=== PATIENT | female | born 1985 | race Hispanic/Latino ===

== ENCOUNTER 2021-03-09 20:36 | Emergency (ER) | payer SELFPAY ==
[2021-03-09] MEDS ORDERED: ACETAMINOPHEN 500 MG TAB ONE (22:22)
--- NOTE | 2021-03-10 00:38 | EDPHYS ---
Physician Documentation [facility] Name: Pat Davila Age: 35 yrs Sex: Female : 1985 Arrival Date: 03/09/2021 Time: 20:37 Bed 10 Private MD: ED Physician Dominik Alcantar HPI: 03/10 00:41 This 35 yrs old Female presents to ER via Wheelchair with complaints of BLOODY tw4 PRODUCTIVE COUGH, Fever, Weakness. 00:41 The patient reports fever, not measured (subjective). Onset: The symptoms/episode tw4 began/occurred 2 day(s) ago. Modifying factors: there are no obvious modifying factors. Associated signs and symptoms: Pertinent positives: cough. Severity of symptoms: At their worst the symptoms were moderate in the emergency department the symptoms are unchanged. The patient has not experienced similar symptoms in the past. 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 - Social history:: Smoking status: Patient denies any tobacco usage or history of. ROS: 03/10 00:41 Constitutional: Negative for fever, chills, and weight loss, Eyes: Negative for injury, tw4 pain, redness, and discharge, Cardiovascular: Negative for chest pain, palpitations, and edema, Abdomen/GI: Negative for abdominal pain, nausea, vomiting, diarrhea, and constipation, Back: Negative for injury and pain, MS/Extremity: Negative for injury and deformity, Skin: Negative for injury, rash, and discoloration, Neuro: Negative for headache, weakness, numbness, tingling, and seizure. Respiratory: Positive for cough, with no reported sputum, hemoptysis, shortness of breath, Negative for orthopnea, pleurisy. Exam: 00:41 Constitutional: This is a well developed, well nourished patient who is awake, alert, tw4 and in no acute distress. Head/Face: Normocephalic, atraumatic. Chest/axilla: Normal chest wall appearance and motion. Nontender with no deformity. No lesions are appreciated. Cardiovascular: Regular rate and rhythm with a normal S1 and S2. No gallops, murmurs, or rubs. Normal PMI, no JVD. No pulse deficits. Respiratory: Lungs have equal breath sounds bilaterally, clear to auscultation and percussion. No rales, rhonchi or wheezes noted. No increased work of breathing, no retractions or nasal flaring. Abdomen/GI: Soft, non-tender, with normal bowel sounds. No distension or tympany. No guarding or rebound. No evidence of tenderness throughout. Back: No spinal tenderness. No costovertebral tenderness. Full range of motion. Skin: Warm, dry with normal turgor. Normal color with no rashes, no lesions, and no evidence of cellulitis. MS/ Extremity: Pulses equal, no cyanosis. Neurovascular intact. Full, normal range of motion. Neuro: Awake and alert, GCS 15, oriented to person, place, time, and situation. Cranial nerves II-XII grossly intact. Motor strength 5/5 in all extremities. Sensory grossly intact. Cerebellar exam normal. Normal gait. Vital Signs: 03/09 21:47 BP 129 / 80; Pulse 102; Resp 28; Temp 101.7; Pulse Ox 100% on R/A; Weight 129.27 kg kg (R); Height 5 ft. 4 in. (162.56 cm) (R); Pain 8/10; 21:47 Body Mass Index 48.92 (129.27 kg, 162.56 cm) kg MDM: 03/10 00:37 Patient medically screened. tw4 00:41 Differential diagnosis: viral Infection, bacterial infection, URI. Data reviewed: vital tw4 signs, nurses notes, covid postive. Data interpreted: Pulse oximetry: Interpretation: normal. Counseling: I had a detailed discussion with the patient and/or guardian regarding: the historical points, exam findings, and any diagnostic results supporting the discharge/admit diagnosis, lab results. Special discussion: I discussed with the patient/guardian in detail that at this point there is no indication for admission to the hospital. It is understood, however, that if the symptoms persist or worsen the patient needs to return immediately for re-evaluation. 03/09 23:49 Order name: Urine --Ancillary (enter results) mw2 03/09 21:25 Order name: CXR XRAY tw4 03/10 00:27 Order name: SARS-COV-2 RT PCR; Complete Time: 00:43 EDOR 03/10 00:43 Interpretation: Abnormal: SARSCOV2 RT PCR POSITIVE. tw4 Administered Medications: 03/09 22:01 Drug: Tylenol 1000 mg Route: PO; kg Disposition Summary: 03/10/21 00:37 Discharge Ordered Location: Home tw4 Problem: new tw4 Symptoms: have improved tw4 Condition: Stable tw4 Diagnosis - Coronavirus infection, unspecified tw4 - Other coronavirus as the cause of diseases classified elsewhere tw4 Followup: tw4 - With: Private Physician - When: Upon discharge from the Emergency Department - Reason: Recheck today's complaints, Continuance of care, Re-evaluation by your physician Discharge Instructions: - Discharge Summary Sheet tw4 - Upper Respiratory Infection, Adult tw4 - Viral Respiratory Infection, [id number] tw4 - COVID-19 tw4 Forms: - Medication Reconciliation Form tw4 - Thank You Letter tw4 - Antibiotic Education tw4 - Prescription Opioid Use tw4 Prescriptions: - ProAir HFA 90 mcg/actuation Inhalation HFA aerosol inhaler - inhale 2 puff by INHALATION route 4 times per day; 4 puff; Refills: 0, Product tw4 Selection Permitted - Zofran 4 mg Oral Tablet - take 1 tablet by ORAL route every 12 hours As needed; 20 tablet; Refills: 0, tw4 Product Selection Permitted Signatures: Dispatcher [employer] Dominik Morales MD MD tw4 Belle Lundberg, RN RN kg
--- NOTE | 2021-03-10 00:38 | ER ---
Nurse's Notes [facility] Name: Pat Davila Age: 35 yrs Sex: Female : 1985 Arrival Date: 03/09/2021 Time: 20:37 Bed 10 Private MD: Diagnosis: Coronavirus infection, unspecified;Other coronavirus as the cause of diseases classified elsewhere Presentation: 03/09 21:47 Chief complaint: Patient states: Fever, SOB, Productive bloody cough, Left leg numbness kg x 2 days. Pt stated she took to at home COVID test and both were negative. Coronavirus screen: Client denies travel out of the [place] in the last 14 days. At this time, unable to obtain information related to travel outside the [place] Client presents with at least one sign or symptom that may indicate coronavirus-19. Standard/surgical mask placed on the client. Provider contacted for isolation considerations. Ebola Screen: Patient negative for fever greater than or equal to 101.5 degrees Fahrenheit, and additional compatible Ebola Virus Disease symptoms Patient denies exposure to infectious person. Patient denies travel to an Ebola-affected area in the 21 days before illness onset. No symptoms or risks identified at this time. Onset of symptoms was March 07, 2021. 21:47 Method Of Arrival: Wheelchair kg 21:54 Initial Sepsis Screen: Does the patient meet any 2 criteria? RR > 20 per min. Temp kg <36.0*C (96.8*F)) or > 38.3*C (100.9*F). Does the patient have a suspected source of infection? Yes: Productive cough/pneumonia. Risk Assessment: Do you want to hurt yourself or someone else? Patient reports no desire to harm self or others. 21:54 Acuity: VAL 3 kg Triage Assessment: 21:54 General: Appears in no apparent distress. Behavior is calm, cooperative, appropriate kg for age, quiet. 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 - Social history:: Smoking status: Patient denies any tobacco usage or history of. Screenin:53 Abuse screen: Denies threats or abuse. Denies injuries from another. Nutritional kg screening: No deficits noted. Tuberculosis screening: No symptoms or risk factors identified. Fall Risk None identified. Assessment: 21:53 Pain: Complains of pain in Back of head, throat, eyes Pain radiates to Generalized. kg Vital Signs: 21:47 BP 129 / 80; Pulse 102; Resp 28; Temp 101.7; Pulse Ox 100% on R/A; Weight 129.27 kg kg (R); Height 5 ft. 4 in. (162.56 cm) (R); Pain 8/10; 21:47 Body Mass Index 48.92 (129.27 kg, 162.56 cm) kg ED Course: 20:37 Patient arrived in ED. cf2 21:24 Dominik Alcantar MD is Attending Physician. tw4 21:45 CXR XRAY In Process Unspecified. EDMS 21:53 Patient has correct armband on for positive identification. kg 21:53 No provider procedures requiring assistance completed. kg 21:54 Triage completed. kg 21:54 Arm band placed on right wrist. kg 03/10 00:34 Jacob Mullins, RN is Primary Nurse. em 00:49 Patient did not have IV access during this emergency room visit. em Administered Medications: 03/09 22:01 Drug: Tylenol 1000 mg Route: PO; kg Outcome: 03/10 00:37 Discharge ordered by . tw4 00:48 Discharged to home ambulatory. em 00:48 Condition: stable 00:48 Discharge instructions given to patient, Instructed on discharge instructions, follow up and referral plans. medication usage, Demonstrated understanding of instructions, follow-up care, medications, Prescriptions given X 2. 00:49 Patient left the ED. em Signatures: Dispatcher [employer] Jacob Sequeira, RN RN Dominik Alcantar MD MD tw4 Darryl Stratton cf2 Belle Lundberg RN RN kg
[2021-03-10 00:57] VITALS: BP 129/80; TEMP 101.7; O2SAT 100
--- NOTE | 2021-03-10 11:54 | RAD REPORT ---
EXAM DESCRIPTION: RAD - Chest Single View - 03/09/2021 11:02 pm CLINICAL HISTORY: SOB Prolonged technical malfunctions delayed final written report. COMPARISON: None TECHNIQUE: AP portable chest image was obtained 03/09/2021 11:02 pm . FINDINGS: Lung volumes are very low which accentuates the interstitial pattern. No peripheral mass o r consolidation. Significant failure or volume overload not suspected. Heart and vasculature are norm al. No measurable pleural effusion and no pneumothorax. No acute bony abnormality seen. No acute aort ic findings suspected. IMPRESSION: No acute cardiopulmonary process.
== END 2021-03-10 00:49 | disposition home or self-care (01) ==
LOC: ER 20:36
DX: U07.1 COVID-19 (principal)
CPT/HCPCS: 71045; 81025; 99283; U0003

== ENCOUNTER 2021-11-07 23:59 | Emergency (ER) | payer SELFPAY ==
[2021-11-08] MEDS ORDERED: METHYLPREDNISOLONE 125 MG INJ ONE (00:40)
[2021-11-08] MEDS ORDERED: FAMOTIDINE 20 MG/2 ML VIAL IV ONE (00:41)
[2021-11-08] MEDS ORDERED: DIPHENHYDRAMINE 50 MG/ML VIAL ONE (00:41)
--- NOTE | 2021-11-08 02:27 | EDPHYS ---
Physician Documentation [facility] Name: Pat Davila Age: 35 yrs Sex: Female : 1985 Arrival Date: 11/08/2021 Time: 00:00 Bed 13 Private MD: ED Physician Kirby Palafox HPI: 11/08 04:36 This 35 yrs old Female presents to ER via Ambulatory with complaints of kdr Allergic Reaction, Hives. 04:36 The patient presents with itching, rash. Onset: The symptoms/episode began/occurred kdr acutely, suddenly, just prior to arrival. Associated signs and symptoms: The patient has no apparent associated signs or symptoms. Possible causes: The patient has no known obvious cause for the symptoms. At home the patient or guardian has treated the symptoms with nothing. The patient has not experienced similar symptoms in the past. The patient has not recently seen a physician. About an hour prior to arrival, the patient began having hives on her extremities. She does not recall any particular precipitating agent or events. She has not had anything like this before. She has otherwise been in good health. She denies any threat to airway. She states that the rash itches but otherwise is not to uncomfortable. Historical: - Allergies: 00:15 Coconut; sm5 00:15 Mushroom; sm5 - Home Meds: 00:15 None [Active]; sm5 - PMHx: 00:15 None; sm5 - Immunization history:: Client reports receiving the 2nd dose of the Covid vaccine. - Social history:: Smoking status: Patient denies any tobacco usage or history of. ROS: 04:36 Constitutional: Negative for fever, chills, and weight loss, Eyes: Negative for injury, kdr pain, redness, and discharge, ENT: Negative for injury, pain, and discharge, Neck: Negative for injury, pain, and swelling, Cardiovascular: Negative for chest pain, palpitations, and edema, Respiratory: Negative for shortness of breath, cough, wheezing, and pleuritic chest pain, Abdomen/GI: Negative for abdominal pain, nausea, vomiting, diarrhea, and constipation, Back: Negative for injury and pain, : Negative for injury, bleeding, discharge, and swelling, MS/Extremity: Negative for injury and deformity, Neuro: Negative for headache, weakness, numbness, tingling, and seizure activity. Psych: Negative for depression, anxiety, suicide ideation, homicidal ideation, and hallucinations, Allergy/Immunology: Negative for hives, rash, and allergies, Endocrine: Negative for neck swelling, polydipsia, polyuria, polyphagia, and marked weight changes, Hematologic/Lymphatic: Negative for swollen nodes, abnormal bleeding, and unusual bruising. 04:36 Skin: Positive for Exam: 04:36 Constitutional: This is a well developed, well nourished patient who is awake, alert, kdr and in no acute distress. Head/Face: Normocephalic, atraumatic. Eyes: Pupils equal round and reactive to light, extra-ocular motions intact. Lids and lashes normal. Conjunctiva and sclera are non-icteric and not injected. Cornea within normal limits. Periorbital areas with no swelling, redness, or edema. Vital Signs: 00:14 BP 143 / 62; Pulse 93; Resp 22; Temp 99.2(O); Pulse Ox 99% on R/A; Weight 129.27 kg; [facility] Height 5 ft. 3 in. (160.02 cm); 01:30 BP 134 / 78; Pulse 93; Resp 18; Pulse Ox 98% on R/A; ll3 02:15 BP 110 / 48; Pulse 84; Resp 17; Pulse Ox 97% on R/A; ll3 00:14 Body Mass Index 50.48 (129.27 kg, 160.02 cm) [facility] MDM: 02:27 Patient medically screened. kdr 04:38 Data reviewed: vital signs, nurses notes, lab test result(s), radiologic studies. kdr Administered Medications: 00:52 Drug: Pepcid (famotidine) 20 mg Route: IVP; Site: right antecubital; ll3 02:50 Follow up: Response: No adverse reaction ll3 00:52 Drug: Benadryl (diphenhydrAMINE) 50 mg Route: IVP; Site: right antecubital; ll3 02:50 Follow up: Response: No adverse reaction ll3 00:52 Drug: SOLU-Medrol (methylPrednisoLONE) 125 mg Route: IVP; Site: right antecubital; ll3 02:50 Follow up: Response: No adverse reaction ll3 Disposition Summary: 11/08/21 02:27 Discharge Ordered Location: Home kdr Problem: new kdr Symptoms: have improved kdr Condition: Stable kdr Diagnosis - Allergic urticaria kdr - Rash and other nonspecific skin eruption kdr Followup: kdr - With: Private Physician - When: 2 - 3 days - Reason: If symptoms return, Further diagnostic work-up, Recheck today's complaints, Continuance of care, Re-evaluation by your physician Discharge Instructions: - Discharge Summary Sheet kdr - Hives kdr - Rash, Adult, [id number] kdr Forms: - Medication Reconciliation Form kdr - Thank You Letter kdr Prescriptions: - Benadryl 25 mg Oral Capsule - take 2 capsule by ORAL route every 6 hours As needed; 30 tablet; Refills: 0, kdr Product Selection Permitted - Medrol (Naresh) 4 mg Oral Tablets, Dose Pack - take 1 tablet by ORAL route as directed - follow package instructions; 1 kdr packet; Refills: 0, Product Selection Permitted - Hydrocortisone 0.5 % Topical Cream - apply 1 application by TOPICAL route every 12 hours As needed; 60 gram; kdr Refills: 0, Product Selection Permitted - Pepcid 20 mg Oral Tablet - take 1 tablet by ORAL route once daily; 20 tablet; Refills: 0, Product kdr Selection Permitted Signatures: Kirby Palafox MD MD kdr Dede Jeffrey, RN RN ll3 Sis Valdez, RN RN sm5
--- NOTE | 2021-11-08 02:27 | ER ---
Nurse's Notes [facility] Name: Pat Davila Age: 35 yrs Sex: Female : 1985 Arrival Date: 11/08/2021 Time: 00:00 Bed 13 Private MD: Diagnosis: Allergic urticaria;Rash and other nonspecific skin eruption Presentation: 11/08 00:14 Chief complaint: Patient states: about an hour ago she started breaking out in hives on sm5 her legs and arms, swelling to her feet/ankles. unknown what she came in contact with. states she has not used any new products. has not taken any allergy medication. Coronavirus screen: Vaccine status: Patient reports receiving the 2nd dose of the covid vaccine. Ebola Screen: No symptoms or risks identified at this time. Onset: The symptoms/episode began/occurred 1 hour(s) ago. Anaphylaxis evaluation, no signs or symptoms of anaphylaxis were noted. Initial Sepsis Screen: Does the patient meet any 2 criteria? No. Patient's initial sepsis screen is negative. Does the patient have a suspected source of infection? No. Patient's initial sepsis screen is negative. Risk Assessment: Do you want to hurt yourself or someone else? Patient reports no desire to harm self or others. Onset of symptoms was November 08, 2021. 00:14 Method Of Arrival: Ambulatory 5 00:14 Acuity: VAL 4 sm5 Triage Assessment: 00:16 General: Appears in no apparent distress. Behavior is cooperative. Pain: Denies pain. sm5 Neuro: No deficits noted. Level of Consciousness is awake, alert, obeys commands, Oriented to person, place, time, situation. Derm: Rash noted that is itchy, red, raised, on right arm, left arm, right leg and left leg. Historical: - Allergies: 00:15 Coconut; sm5 00:15 Mushroom; sm5 - Home Meds: 00:15 None [Active]; sm5 - PMHx: 00:15 None; sm5 - Immunization history:: Client reports receiving the 2nd dose of the Covid vaccine. - Social history:: Smoking status: Patient denies any tobacco usage or history of. Screenin:16 Abuse screen: Denies threats or abuse. Denies injuries from another. Nutritional sm5 screening: No deficits noted. Tuberculosis screening: No symptoms or risk factors identified. Fall Risk None identified. Assessment: 00:20 General: Appears uncomfortable, Behavior is calm, cooperative. Pain: Denies pain. ll3 Neuro: Level of Consciousness is awake, alert, obeys commands, Oriented to person, place, time, situation. Cardiovascular: Patient's skin is warm and dry. Respiratory: Airway is patent Respiratory effort is even, unlabored, Respiratory pattern is regular, symmetrical, Breath sounds are clear bilaterally. Derm: Rash noted that is itchy, raised, on Whole body Reports Ate a burger from [employer], states they may have cooked mushrooms before cooking her food, states she is allergic to mushrooms. 01:15 Reassessment: No changes from previously documented assessment. Patient and/or family ll3 updated on plan of care and expected duration. Pain level reassessed. Patient is alert, oriented x 3, equal unlabored respirations, skin warm/dry/pink. 02:16 Reassessment: Patient and/or family updated on plan of care and expected duration. Pain ll3 level reassessed. Patient is alert, oriented x 3, equal unlabored respirations, skin warm/dry/pink. Pt states meds have helped with iching. Patient denies pain at this time. Vital Signs: 00:14 BP 143 / 62; Pulse 93; Resp 22; Temp 99.2(O); Pulse Ox 99% on R/A; Weight 129.27 kg; sm5 Height 5 ft. 3 in. (160.02 cm); 01:30 BP 134 / 78; Pulse 93; Resp 18; Pulse Ox 98% on R/A; ll3 02:15 BP 110 / 48; Pulse 84; Resp 17; Pulse Ox 97% on R/A; ll3 00:14 Body Mass Index 50.48 (129.27 kg, 160.02 cm) 5 ED Course: 00:00 Patient arrived in ED. kz 00:15 Triage completed. sm5 00:16 Arm band placed on right wrist. sm5 00:20 Patient has correct armband on for positive identification. Bed in low position. Call ll3 light in reach. Side rails up X 1. 00:22 Kirby Palafox MD is Attending Physician. kdr 00:28 Dede Jeffrey RN is Primary Nurse. ll3 00:52 Inserted saline lock: 22 gauge in right antecubital area, using aseptic technique. ll3 02:30 No provider procedures requiring assistance completed. IV discontinued, intact, ll3 bleeding controlled, No redness/swelling at site. Pressure dressing applied. Administered Medications: 00:52 Drug: Pepcid (famotidine) 20 mg Route: IVP; Site: right antecubital; ll3 02:50 Follow up: Response: No adverse reaction ll3 00:52 Drug: Benadryl (diphenhydrAMINE) 50 mg Route: IVP; Site: right antecubital; ll3 02:50 Follow up: Response: No adverse reaction ll3 00:52 Drug: SOLU-Medrol (methylPrednisoLONE) 125 mg Route: IVP; Site: right antecubital; ll3 02:50 Follow up: Response: No adverse reaction ll3 Outcome: 02:27 Discharge ordered by MD. kdr 02:30 Discharged to home ambulatory. ll3 02:30 Condition: stable 02:30 Discharge instructions given to patient, family, Instructed on discharge instructions, follow up and referral plans. medication usage, Demonstrated understanding of instructions, follow-up care, medications, Prescriptions given X 4. 02:50 Patient left the ED. ll3 Signatures: Kirby Palafox MD MD kdr Loubet, Lynsea RN RN 3 Sis Valdez RN RN Rafia Jesus
[2021-11-08 03:07] VITALS: TEMP 99.2
[2021-11-08 03:09] VITALS: BP 110/48; O2SAT 97
== END 2021-11-08 02:50 | disposition home or self-care (01) ==
LOC: ER 23:59
DX: L50.0 Allergic urticaria (principal); Z91.018 Allergy to other foods
CPT/HCPCS: 96374; 96375; 99283; J1200; J2930; J3490

== ENCOUNTER 2022-01-10 16:11 | Emergency (ER) | payer OTHER, SELFPAY ==
--- OUTSIDE RECORDS SUMMARY | 2022-01-10 16:14 | XMS REPORT | Continuity of Care Document ---
:[address] [facility] t Address [address] [place] [address] Care Team Providers Name Role Phone Unavailable Unavailable Unavailable Problems This patient has no known problems. Allergies, Adverse Reactions, Alerts This patient has no known allergies or adverse reactions. Medications This patient has no known medications. Procedures This patient has no known procedures. Results Test Description Test Time Test Comments Results Result Comments Source RIAZ REFLEX AUTOIMMUNE AB PROFILE 2021-11-24 10:27:44 Test Item Value Reference Range Interpretation Comme nts ANTI-NUCLEAR ANTIBODIES (test NEGATIVE NEGATIVE Methodology is Indirect code = 3506) Immunofluoresce nt Assay (IFA) with a titering s [employer] using [id number] cells (Hep2 frances ls transfected with SS-A/Ro). SEDIMENTATION [id number] 06:46:45 Test Item Value Reference Range Interpretation Comments SEDIMENTATION RATE (test code = 37 MM/HOUR 0-20 H 1017) COMPREHENSIVE METABOLIC [id number] 05:59:58 Test Item Value Reference Range Interpretation Comments GLUCOSE (test code = 138 MG/DL 70-99 H 2216) BUN (test code = 19 MG/DL 6-20 2207) CREATININE (test 0.46 MG/DL 0.60-1.30 L code = 2214) eGFR (2020 CKD-EPI) 128 >60 (test code = 12578) ML/MIN/1.73 CALC BUN/CREAT (test 41 RATIO 6-28 H code = 2235) SODIUM (test code = 136 MEQ/L 223-969 4352) POTASSIUM (test code 4.5 MEQ/L 3.5-5.4 = 8) CHLORIDE (test code 108 MEQ/L 95-107 H = 5) CARBON DIOXIDE (test 21 MEQ/L 19-31 code = 2206) CALCIUM (test code = 9.0 MG/DL 8.5-10.5 2208) PROTEIN, TOTAL (test 6.6 G/DL 6.1-8.3 code = 2229) ALBUMIN (test code = 3.9 G/DL 3.5-5.2 2200) CALC GLOBULIN (test 2.7 G/DL 1.9-3.7 code = 2240) CALC A/G RATIO (test 1.4 RATIO 1.0-2.6 code = 2234) BILIRUBIN, TOTAL 0.2 MG/DL See_Comment [Automated message] (test code = 2206) The syste m which generated this result transmit elizabeth reference range : <=1.2. The refe rence range was not u sed to interpret th is result as normal/abnormal . ALKALINE PHOSPHATASE 81 U/L 40-114 (test code = 2203) AST (test code = 19 U/L 9-40 2217) ALT (test code = 50 U/L 5-40 H 2218) RHEUMATOID FACTOR, [id number] 05:58:38 Test Item Value Reference Range Interpretation Comments RHEUMATOID FACTOR, QUANT (test code <10 IU/ML <14 = 3502) HIGH SENSITIVITY [id number] 05:58:38 Test Item Value Reference Range Interpretation Comments HIGH SENSITIVITY CRP 9.6 MG/L SEE BELOW H (test code = 19130) hsCRP LE LETTY RELATIVE RISK <1.0 MG/L LOW 1.0-3 .0 MG/L AVERA GE >3.0 MG/L HIGH (from P ion, T.A. et al. Circulation 200 3; 107:499) UNLESS OTHERWISE INDIC ATED, ALL TESTING PER FORMED ATCLINICAL PATH [facility], [facility]. [address] [place] [address] LABORATORY DIRE CTOR: Margy URBINA [id number] CAP ACCREDITATION N O. [id number] CBC W/AUTO DIFF WITH [id number] 04:28:47 Test Item Value Reference Range Interpretation Comments WBC (test code = 15.5 K/UL 3.5-11.0 H 1001) RBC (test code = 4.33 M/UL 3.80-5.40 1002) HEMOGLOBIN (test code 12.1 G/DL 11.5-15.5 = 1003) HEMATOCRIT (test code 35.6 % 34.0-45.0 = 1004) MCV (test code = 82.2 fL 80.0-99.0 1005) MCH (test code = 27.9 PG 25.0-33.0 1006) MCHC (test code = 34.0 G/DL 31.0-36.0 1007) RDW (test code = 14.1 % 11.5-15.0 1038) NEUTROPHILS (test 79.6 % code = 1008) LYMPHOCYTES (test 14.8 % code = 1010) MONOCYTES (test code 3.4 % = 1011) EOSINOPHILS (test 0.0 % code = 1012) BASOPHILS (test code 0.2 % = 1013) IMMATURE GRANULOCYTES 2.0 % (test code = 1036) NUCLEATED RBCS (test 0.0 /100 See_Comment [Autom ated code = 1065) WBC'S message] The sy stem which generated this result transmitted reference range : 0.0. The refere nce range was not u sed to interpret th is result as normal/abnormal . PLATELET COUNT (test 325 K/UL 130-400 code = 1015) ABSOLUTE NEUTROPHILS 12.34 K/UL 1.50-7.50 H (test code = 1066) ABSOLUTE LYMPHOCYTES 2.30 K/UL 1.00-4.00 (test code = 1067) ABSOLUTE MONOCYTES 0.52 K/UL 0.20-1.00 (test code = 1068) ABSOLUTE EOSINOPHILS 0.00 K/UL 0.00-0.50 (test code = 1040) ABSOLUTE BASOPHILS 0.03 K/UL 0.00-0.20 (test code = 1069) ABS IMMATURE 0.31 K/UL 0.00-0.10 H GRANULOCYTES (test code = 1020) ABS NUCLEATED RBCS 0.00 K/UL 0.00-0.11 (test code = 82866) PROTHROMBIN TIME (PT)2021-11-24 03:14:25 Test Item Value Reference Range Interpretation Comments PROTHROMBIN TIME 13.8 SECONDS 12.5-14.7 (PT) (test code = 1402) INR (test code = 1.0 SEE BELOW CURRENT 24646) RECOMMENDATIONS ARE FOR AN INR OF 2 .0-3.0 FOR A LL PATIENTS ON VIT MYLES K ANTAGONISTS, EX CEPT THOSE WITH PROSTHETIC HEAR T VALVES, FOR WHO M INR OF 2.5-3.5 IS RECOMMENDED.
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
[2022-01-10] MEDS ORDERED: HYDROCODONE/APAP 5/325 MG TAB ONE (18:46)
[2022-01-10] MEDS ORDERED: IBUPROFEN 200 MG TAB PO ONE (18:46)
[2022-01-10] MEDS ORDERED: IBUPROFEN 400 MG TAB ONE (18:47)
[2022-01-10 19:10] VITALS: BP 121/74; TEMP 97.9
[2022-01-10 19:16] VITALS: O2SAT 98
== END 2022-01-10 18:44 | disposition home or self-care (01) ==
LOC: ER 16:11
DX: S16.1XXA Strain of muscle, fascia and tendon at neck level, initial encounter (principal); S93.502A Unspecified sprain of left great toe, initial encounter; V49.49XA Driver injured in collision with other motor vehicles in traffic accident, initial encounter; Z91.018 Allergy to other foods
CPT/HCPCS: 72125; 99284

== ENCOUNTER 2022-04-03 03:22 | Emergency (ER) | payer SELFPAY ==
--- OUTSIDE RECORDS SUMMARY | 2022-04-03 03:25 | XMS REPORT | Continuity of Care Document ---
:1985 Author Organization [facility] t Address [address] [place] [address] Care Team Providers Name Role Phone Unavailable [...] Immunofluoresce nt Assay (IFA) with a titering syst em using [id number] cells (Hep2 frances ls transfected with SS-A/Ro). SEDIMENTATION [id number] 06:46:45 Test Item Value Reference Range Interpretation Comments SEDIMENTATION RATE (test code = 37 MM/HOUR 0-20 H 1017) COMPREHENSIVE METABOLIC [id number] 05:59:58 Test Item Value Reference Range Interpretation Comments GLUCOSE (test code = 138 MG/DL 70-99 H 2216) BUN (test code = 19 MG/DL 6-20 2207) CREATININE (test 0.46 MG/DL 0.60-1.30 L code = 2214) eGFR (2020 CKD-EPI) 128 >60 (test code = 91256) ML/MIN/1.73 CALC BUN/CREAT (test 41 RATIO 6-28 H code = 2235) SODIUM (test code = 136 MEQ/L 426-342 3603) POTASSIUM (test code 4.5 MEQ/L 3.5-5.4 = 2227) CHLORIDE (test code 108 MEQ/L 95-107 H = 2214) CARBON DIOXIDE (test 21 MEQ/L 19-31 code = 2206) CALCIUM (test code = 9.0 MG/DL 8.5-10.5 2208) PROTEIN, TOTAL (test 6.6 G/DL 6.1-8.3 code = 222) ALBUMIN (test code = 3.9 G/DL 3.5-5.2 [...] 50 U/L 5-40 H 2218) RHEUMATOID FACTOR, [id number] 05:58:38 Test Item Value Reference Range Interpretation Comments RHEUMATOID FACTOR, QUANT (test code <10 IU/ML <14 = 3502) HIGH SENSITIVITY [id number] 05:58:38 Test Item Value Reference Range Interpretation Comments HIGH SENSITIVITY CRP 9.6 MG/L SEE BELOW H hsCRP LEVEL RELATIVE (test code = 23180) RISK <1. 0 MG/L LOW 1.0-3.0 MG/L AV ERAGE >3.0 MG/L HIGH (from Stevan T.A. e t al. Circulation 200 3; 107:499) UNLESS OTHERWISE INDIC ATED, ALL TESTING PER FORMED ATCLINICAL PATH [facility]. [address] [place] [id number] LABORATOR Y DIRECTOR: NHI JIMENEZ M.D. CLIA NUMBER [id number] CAP ACCREDITATION N O. [id number] CBC W/AUTO DIFF WITH [id number] 04:28:47 Test Item Value Reference Range Interpretation [...] = 1036) NUCLEATED RBCS (test 0.0 /100 WBC'S See_Comment [Aut omated code = 1065) message] The sy stem which generated this [...] RBCS 0.00 K/UL 0.00-0.11 (test code = 12797) PROTHROMBIN TIME (PT)2021-11-24 03:14:25 Test Item Value Reference Range Interpretation Comments PROTHROMBIN TIME 13.8 SECONDS 12.5-14.7 (PT) (test code = 1402) INR (test code = 1.0 SEE BELOW CURRENT 27620) RECOMMENDATIONS ARE FOR AN INR OF 2 .0-3.0 FOR ALL PATIENT S ON VITAMIN K ANTAG ONISTS, EXCEPT THOSE WI TH PROSTHETIC HEAR T VALVES, FOR WHO M INR OF 2.5-3.5 IS RECOMMENDED.
[2022-04-03 04:25] LABS: Absolute Lymphocytes (CBC) 2.5 K/uL (0.7-4.9); Hematocrit 39.4 % (36.0-45.0); MCV 82.8 fL (80-100); MPV 7.5 fL (7.6-11.3); RBC Red Blood Cell Count 4.76 M/uL (3.86-4.86)
[2022-04-03 04:28] LABS: Protime INR 1.07
[2022-04-03] MEDS ORDERED: ONDANSETRON 4 MG/2 ML VIAL ONE (04:40)
[2022-04-03] MEDS ORDERED: FENTANYL CITR 100 MCG/2 ML ONE (04:40)
[2022-04-03] MEDS ORDERED: FAMOTIDINE 20 MG/2 ML VIAL IV ONE (04:40)
[2022-04-03 04:46] LABS: Albumin 3.5 g/dL (3.4-5.0); Bilirubin Direct 0.5 mg/dL (0-0.2); Bilirubin Total 0.9 mg/dL (0.2-1.0); Magnesium 2.2 mg/dL (1.8-2.4); Potassium 4.1 mmol/L (3.5-5.1); Protein, Total 7.8 g/dL (6.4-8.2); Troponin High Sensitivity 3.3 pg/mL (<58.9)
--- NOTE | 2022-04-03 07:58 | ER ---
Nurse's Notes [facility] Name: Pat Davila Age: 36 yrs Sex: Female : 1985 Arrival Date: 04/03/2022 Time: 03:27 Bed 4 Private MD: Diagnosis: Acute cholecystitis;Other cholelithiasis with obstruction;Epigastric abdominal tenderness;Morbid (severe) obesity due to excess calories Presentation: 04/03 03:46 Chief complaint: Patient states: "I started feeling short of breath this afternoon but vc1 now it is worse, It hurts to take a deep breath. On my way here I had to pool over because I had to vomit.". Coronavirus screen: Vaccine status: Patient reports being unvaccinated. Ebola Screen: No symptoms or risks identified at this time. Initial Sepsis Screen: Does the patient meet any 2 criteria? RR > 20 per min. Mean Arterial Pressure (MAP) < 65. Yes Does the patient have a suspected source of infection? No. Patient's initial sepsis screen is negative. Risk Assessment: Do you want to hurt yourself or someone else? Patient reports no desire to harm self or others. Onset of symptoms was April 02, 2000. 03:46 Method Of Arrival: Ambulatory vc1 03:46 Acuity: VAL 3 vc1 Triage Assessment: 03:50 General: Appears distressed, Behavior is anxious. Pain: Complains of pain in epigastric vc1 area Pain does not radiate. Pain currently is 9 out of 10 on a pain scale. Noted to be grimacing, guarding, moaning, Also complains of nausea. EENT: No deficits noted. Neuro: Level of Consciousness is awake, obeys commands, Oriented to person, place, time, situation, Appropriate for age. Cardiovascular: No deficits noted. Respiratory: Reports shortness of breath at rest labored breathing pain with respiration Onset: The symptoms/episode began/occurred gradually, the patient has moderate shortness of breath. GI: No deficits noted. : No deficits noted. Derm: No deficits noted. Musculoskeletal: No deficits noted. 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 - Social history:: Smoking status: Patient denies any tobacco usage or history of. Screenin:54 Abuse screen: Denies threats or abuse. Nutritional screening: No deficits noted. vc1 Tuberculosis screening: No symptoms or risk factors identified. Fall Risk None identified. Assessment: 03:54 Cardiovascular: Rhythm is sinus bradycardia. Respiratory: Airway is patent Respiratory vc1 effort is even, labored, Respiratory pattern is tachypnea. 05:00 Reassessment: Patient appears in no apparent distress at this time. Patient and/or jb4 family updated on plan of care and expected duration. Pain level reassessed. Patient is alert, oriented x 3, equal unlabored respirations, skin warm/dry/pink. 06:00 Reassessment: Patient appears in no apparent distress at this time. Patient and/or jb4 family updated on plan of care and expected duration. Pain level reassessed. Patient is alert, oriented x 3, equal unlabored respirations, skin warm/dry/pink. 07:00 Reassessment: Patient appears in no apparent distress at this time. Patient and/or jb4 family updated on plan of care and expected duration. Pain level reassessed. Patient is alert, oriented x 3, equal unlabored respirations, skin warm/dry/pink. 07:30 General: Appears comfortable, Behavior is calm, cooperative. Pain: Complains of pain in aa5 chest and epigastric area Pain does not radiate. Pain currently is 3 out of 10 on a pain scale. Quality of pain is described as crampy, sharp, Pain began 1 day ago. Is continuous. Neuro: Level of Consciousness is awake, alert, obeys commands, Oriented to person, place, time, situation. Cardiovascular: Heart tones S1 S2 present Rhythm is regular. Respiratory: Airway is patent Respiratory effort is even, unlabored, relaxed, Respiratory pattern is regular, symmetrical, Breath sounds are clear bilaterally. GI: Abdomen is obese, Bowel sounds present X 4 quads. Abd is soft X 4 quads Abdomen is tender to palpation in epigastric area Reports pain has improved, reports nausea has improved. : No signs and/or symptoms were reported regarding the genitourinary system. EENT: No signs and/or symptoms were reported regarding the EENT system. Derm: Skin is pink, warm \\T\\ dry. Musculoskeletal: Range of motion: intact in all extremities. 08:20 Reassessment: Patient is alert, oriented x 3, equal unlabored respirations, skin aa5 warm/dry/pink. Pt lying down in bed, pt using her cell phone. . 08:20 Pain: Pain currently is 3 out of 10 on a pain scale. aa5 09:20 Reassessment: Dr. Ayers at bedside updating pt on POC. aa5 09:40 Reassessment: Patient is alert, oriented x 3, equal unlabored respirations, skin aa5 warm/dry/pink. Awaiting approval for transfer. . 09:40 General: Appears comfortable. aa5 10:28 Reassessment: Unsuccessful attempt to give report to nurse at [facility], told to call aa5 back in 5-10 minutes . 10:55 Reassessment: 2nd unsucessful attempt to call report to nurse at [facility], transfer aa5 states nurse will call me back and states may send patient upon waiting to give report. ETA for EMS is 20 minutes at this time. . 11:45 Reassessment: Patient is alert, oriented x 3, equal unlabored respirations, skin aa5 warm/dry/pink. Vital Signs: 03:46 BP 92 / 49; Pulse 57; Resp 34; Temp 98.5(O); Pulse Ox 100% on R/A; Weight 136.08 kg; vc1 Height 5 ft. 3 in. (160.02 cm); Pain 10/10; 07:00 BP 113 / 71; Pulse 63; Resp 16; Pulse Ox 95% on R/A; jb4 08:20 BP 114 / 76; Pulse 75; Resp 16 S; Temp 98.4(TE); Pulse Ox 99% on R/A; aa5 03:46 Body Mass Index 53.14 (136.08 kg, 160.02 cm) vc1 ED Course: 03:27 Patient arrived in ED. bp1 03:36 Timmy Ayers MD is Attending Physician. michael 03:48 Triage completed. vc1 03:51 Arm band placed on left wrist. vc1 03:55 Patient has correct armband on for positive identification. Bed in low position. Client vc1 placed on continuous cardiac and pulse oximetry monitoring. NIBP monitoring applied. 04:49 Alisa Garcia, RN is Primary Nurse. ke1 04:56 US Abdomen Limited In Process Unspecified. EDMS 04:59 XRAY Chest (1 view) In Process Unspecified. EDMS 06:09 CT Chest For PE Angio In Process Unspecified. EDMS 06:10 CT Abd/Pelvis - IV Contrast Only In Process Unspecified. EDMS 07:30 IV 18G to R AC noted, 22G to L AC noted . aa5 07:30 IV discontinued, intact, bleeding controlled, Pressure dressing applied, 18G to R AC aa5 dc'd, infiltration noted. 07:52 initiated a transfer with Vivienne Gee from the [facility] transfer center. eb 08:25 No provider procedures requiring assistance completed. aa5 10:03 administrative approval given by Vivienne Gee / patient has been accepted to [facility] A509/ Dr. Sara Ferrara has accepted the patient in transfer/ report to be called through the transfer center at [phone]. 11:45 Patient transferred, IV remains in place. aa5 Administered Medications: 04:39 Drug: Zofran (Ondansetron) 4 mg Route: IVP; Site: right antecubital; jb4 07:30 Follow up: Response: No adverse reaction aa5 04:39 Drug: Pepcid (famotidine) 20 mg Route: IVP; Site: right antecubital; jb4 07:30 Follow up: Response: No adverse reaction; Marked relief of symptoms aa5 04:39 Drug: fentaNYL (PF) 50 mcg Route: IVP; Site: right antecubital; jb4 07:30 Follow up: Response: No adverse reaction; Pain is decreased aa5 08:00 Drug: Zosyn (piperacillin-tazobactam) 3.375 grams Route: IVPB; Infused Over: 60 mins; aa5 Site: left antecubital; 09:00 Follow up: Response: No adverse reaction; IV Status: Completed infusion aa5 Medication: 03:55 VIS not applicable for this client. vc1 Outcome: 07:57 ER care complete, transfer ordered by michael 11:45 Transferred by ground EMS to [facility], [facility], Transfer form completed. aa5 X-rays sent w/ patient. Note: Report given to [facility] 11:45 Condition: stable 11:45 Instructed on the need for transfer, Demonstrated understanding of instructions. 11:57 Patient left the ED. aa5 Signatures: Dispatcher [employer] Timmy Wolff MD MD cha Calderon, Audri, RN RN aa5 Leobardo Obando RN RN jb4 Pat Mohan Brittany bp1 Calcote, Vanessa RN RN vc1 Alisa Garcia RN RN ke1
--- NOTE | 2022-04-03 07:58 | EDPHYS ---
Physician Documentation [facility] Name: Pat Davila Age: 36 yrs Sex: Female : 1985 Arrival Date: 04/03/2022 Time: 03:27 Bed 4 Private MD: ED Physician Timmy Ayers HPI: 04/03 07:50 This 36 yrs old Female presents to ER via Ambulatory with complaints of michael Shortness Of Breath, Vomiting. 07:50 The patient has shortness of breath at rest. Onset: The symptoms/episode began/occurred michael just prior to arrival. Duration: The symptoms are continuous, and are steadily getting worse. The patient's shortness of breath is aggravated by light activity. 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 - Social history:: Smoking status: Patient denies any tobacco usage or history of. ROS: 07:51 Constitutional: Negative for fever, chills, and weight loss, Eyes: Negative for injury, michael pain, redness, and discharge, ENT: Negative for injury, pain, and discharge, Neck: Negative for injury, pain, and swelling, Cardiovascular: Negative for chest pain, palpitations, and edema, Respiratory: Negative for shortness of breath, cough, wheezing, and pleuritic chest pain, Back: Negative for injury and pain, : Negative for injury, bleeding, discharge, and swelling, MS/Extremity: Negative for injury and deformity, Skin: Negative for injury, rash, and discoloration, Neuro: Negative for headache, weakness, numbness, tingling, and seizure, Psych: Negative for depression, anxiety, suicide ideation, homicidal ideation, and hallucinations, Allergy/Immunology: Negative for hives, rash, and allergies, Endocrine: Negative for neck swelling, polydipsia, polyuria, polyphagia, and marked weight changes, Hematologic/Lymphatic: Negative for swollen nodes, abnormal bleeding, and unusual bruising. 07:51 Abdomen/GI: Positive for abdominal pain, of the epigastric area and right upper quadrant. Exam: 07:51 Constitutional: This is a well developed, well nourished patient who is awake, alert, michael and in no acute distress. Head/Face: Normocephalic, atraumatic. Eyes: Pupils equal round and reactive to light, extra-ocular motions intact. Lids and lashes normal. Conjunctiva and sclera are non-icteric and not injected. Cornea within normal limits. Periorbital areas with no swelling, redness, or edema. ENT: Nares patent. No nasal discharge, no septal abnormalities noted. Tympanic membranes are normal and external auditory canals are clear. Oropharynx with no redness, swelling, or masses, exudates, or evidence of obstruction, uvula midline. Mucous membranes moist. Neck: Trachea midline, no thyromegaly or masses palpated, and no cervical lymphadenopathy. Supple, full range of motion without nuchal rigidity, or vertebral point tenderness. No Meningismus. Chest/axilla: Normal chest wall appearance and motion. Nontender with no deformity. No lesions are appreciated. Cardiovascular: Regular rate and rhythm with a normal S1 and S2. No gallops, murmurs, or rubs. Normal PMI, no JVD. No pulse deficits. Respiratory: Lungs have equal breath sounds bilaterally, clear to auscultation and percussion. No rales, rhonchi or wheezes noted. No increased work of breathing, no retractions or nasal flaring. Back: No spinal tenderness. No costovertebral tenderness. Full range of motion. Pelvic Exam: Normal external genitalia. Speculum exam with closed cervical os, no discharge or bleeding noted. Bimanual exam with normal adnexa, no adnexal or cervical motion tenderness. Normal uterus. Female : Normal external genitalia. Skin: Warm, dry with normal turgor. Normal color with no rashes, no lesions, and no evidence of cellulitis. MS/ Extremity: Pulses equal, no cyanosis. Neurovascular intact. Full, normal range of motion. Neuro: Awake and alert, GCS 15, oriented to person, place, time, and situation. Cranial nerves II-XII grossly intact. Motor strength 5/5 in all extremities. Sensory grossly intact. Cerebellar exam normal. Normal gait. Psych: Awake, alert, with orientation to person, place and time. Behavior, mood, and affect are within normal limits. 07:51 ECG was reviewed by the Attending Physician. 07:51 Abdomen/GI: Inspection: distension. Vital Signs: 03:46 BP 92 / 49; Pulse 57; Resp 34; Temp 98.5(O); Pulse Ox 100% on R/A; Weight 136.08 kg; vc1 Height 5 ft. 3 in. (160.02 cm); Pain 10/10; 07:00 BP 113 / 71; Pulse 63; Resp 16; Pulse Ox 95% on R/A; jb4 08:20 BP 114 / 76; Pulse 75; Resp 16 S; Temp 98.4(TE); Pulse Ox 99% on R/A; aa5 03:46 Body Mass Index 53.14 (136.08 kg, 160.02 cm) vc1 MDM: 03:37 Patient medically screened. michael 07:52 Differential diagnosis: CHF exacerbation, Chronic Obstructive Pulmonary Disease michael pneumonia, pulmonary edema, Pulmonary Embolism reactive airway disease, bowel obstruction, cholecystitis, Cholelithiasis, diverticulitis, gastritis, non-specific abd pain, pancreatitis, Peptic Ulcer Disease, urinary tract infection. Antibiotic administration: zosyn . The patient's Wells Deep Vein Thrombosis Score was calculated as follows: Total Score: 0-2 Pts- Low Risk. The patient's pulmonary embolism risk score was calculated as follows: Total Score: 0-2 points. This patient was found to be at low risk for a pulmonary embolism by using the Well's assessment criteria. Immunization status:. Data reviewed: vital signs, nurses notes, lab test result(s), EKG, radiologic studies, CT scan, ultrasound. Data interpreted: quality assurance monitor body: rate is 63 beats/min, rhythm is regular, Pulse oximetry: on room air is 95 %. Test interpretation: by ED physician or midlevel provider: ECG, plain radiologic studies. Counseling: I had a detailed discussion with the patient and/or guardian regarding: the historical points, exam findings, and any diagnostic results supporting the discharge/admit diagnosis, lab results, radiology results, the need to transfer to another facility, for higher level of care, [facility] does not immediately have the required specialist. 07:57 Physician consultation: Lamin Valle MD after a discussion of the case, a [facility] recommendation for transfer for higher level of care is made. 04/03 03:38 Order name: Basic Metabolic Panel; Complete Time: 07:47 michael 04/03 03:38 Order name: CBC with Diff; Complete Time: 07:[address] [facility] 04/03 03:38 Order name: LFT's; Complete Time: 07:[address] [facility] 04/03 03:38 Order name: Magnesium; Complete Time: 07:[address] [facility] 04/03 03:38 Order name: NT PRO-BNP; Complete Time: 07:[address] [facility] 04/03 03:38 Order name: PT-INR; Complete Time: 07:[address] [facility] 04/03 03:38 Order name: Troponin HS; Complete Time: 07:[address] [facility] 04/03 03:38 Order name: XRAY Chest (1 view) [facility] 04/03 03:38 Order name: Lipase; Complete Time: 07:47 michael 04/03 07:49 Order name: SARS RAPID; Complete Time: 08:46 eb 04/03 08:03 Order name: Urine Dipstick-Ancillary; Complete Time: 08:46 EDMS 04/03 08:47 Order name: Urine Culture [facility] 04/03 08:47 Order name: Urine Microscopic Only [facility] 04/03 03:38 Order name: EKG; Complete Time: 03:[address] [facility] 04/03 03:38 Order name: Cardiac monitoring; Complete Time: 04:[address] [facility] 04/03 03:38 Order name: EKG - Nurse/Tech; Complete Time: 04:[address] [facility] 04/03 03:38 Order name: IV Saline Lock; Complete Time: 04:[address] [facility] 04/03 03:38 Order name: Labs collected and sent; Complete Time: 04:[address] [facility] 04/03 03:38 Order name: O2 Per Protocol; Complete Time: 04:[address] [facility] 04/03 03:38 Order name: O2 Sat Monitoring; Complete Time: 04:[address] [facility] 04/03 03:38 Order name: Urine Dipstick-Ancillary (obtain specimen); Complete Time: 08:[address] [facility] 04/03 03:38 Order name: Urine Test (obtain specimen); Complete Time: 08:[address] [facility] 04/03 03:53 Order name: US Abdomen Limited [facility] 04/03 03:53 Order name: CT Chest For PE Angio michael 04/03 03:53 Order name: CT Abd/Pelvis - IV Contrast Only [facility] EC:51 Rate is 54 beats/min. Rhythm is regular. QRS [place] is Normal. CO interval is normal. QRS michael interval is normal. QT interval is normal. No Q waves. T waves are Normal. No ST changes noted. Clinical impression: Sinus bradycardia and No evidence of ischemia. Interpreted by me. Reviewed by me. Administered Medications: 04:39 Drug: Zofran (Ondansetron) 4 mg Route: IVP; Site: right antecubital; jb4 07:30 Follow up: Response: No adverse reaction aa5 04:39 Drug: Pepcid (famotidine) 20 mg Route: IVP; Site: right antecubital; jb4 07:30 Follow up: Response: No adverse reaction; Marked relief of symptoms aa5 04:39 Drug: fentaNYL (PF) 50 mcg Route: IVP; Site: right antecubital; jb4 07:30 Follow up: Response: No adverse reaction; Pain is decreased aa5 08:00 Drug: Zosyn (piperacillin-tazobactam) 3.375 grams Route: IVPB; Infused Over: 60 mins; aa5 Site: left antecubital; 09:00 Follow up: Response: No adverse reaction; IV Status: Completed infusion aa5 Disposition Summary: 04/03/22 07:57 Transfer Ordered Transfer Location: [facility] michael Reason: Higher level of care michael Condition: Stable michael Problem: new michael Symptoms: have improved michael Accepting Physician: to [facility](04/03/22 11:57) aa5 Diagnosis - Acute cholecystitis michael - Other cholelithiasis with obstruction michael - Epigastric abdominal tenderness michael - Morbid (severe) obesity due to excess calories michael Forms: - Medication Reconciliation Form michael - SBAR form michael Signatures: Dispatcher [employer] EDTimmy Loyola MD MD cha Calderon, Audri RN RN aa5 Leobardo Obando RN RN jb4 Diana Burnett RN RN vc1 Corrections: (The following items were deleted from the chart) 11:57 07:57 to [facility] michael aa5
[2022-04-03 08:03] LABS: Urine Blood 1+ (Negative); Urine Glucose Negative (Negative); Urine Protein Trace (Negative)
[2022-04-03] MEDS ORDERED: PIPERACIL/TAZO 3.375 GM VIAL IV ONE (08:07)
[2022-04-03] MEDS ORDERED: NA CHLORIDE 0.9% 100 ML ONE (08:07)
[2022-04-03 08:28] LABS: SARS-CoV-2 Antigen Rapid Res Negative (Negative)
[2022-04-03 09:12] LABS: Urine Bacteria <20 /HPF (<20); Urine Mucus 2+ /HPF (None Seen); Urine RBC >50 /HPF (None Seen)
--- NOTE | 2022-04-03 20:29 | RAD REPORT ---
EXAM DESCRIPTION: CT - Abdomen Pelvis W Contrast - 04/03/2022 6:08 am COMPARISON: None. CLINICAL HISTORY: Chest and abdominal pain TECHNIQUE: CT images through the chest with IV contrast using the pulmonary embolus protocol and thr ough the abdomen and pelvis. Multiplanar reformats. MIPS reformats are provided. Automated exposure control was utilized on this examination as a dose lowering technique. FINDINGS: Pulmonary arteries and vascular: Diagnostic quality bolus. No filling defects. Heart and mediastinum: Heart size is normal. No lymphadenopathy. Thyroid gland: Visualized portions are normal. Lungs: Clear. Airways: No filling defects. No bronchiectasis. Pleura: No pneumothorax. No significant pleural effusion. Musculoskeletal and soft tissues: Within normal limits for age. CT ABDOMEN & PELVIS FINDINGS: Liver: Normal. Gallbladder and biliary: Normal gallbladder. Unremarkable biliary tree. Pancreas: Normal. Spleen: Normal. Kidneys and adrenal glands: Normal adrenal glands. Normal kidneys Stomach and Small Bowel: The stomach and small bowel are normal. Urinary bladder: Normal. Uterus and Adnexa: IUD in place. Colon and Appendix: The colon is unremarkable. No evidence of appendicitis. Peritoneal cavity: No ascites or free air. Retroperitoneum and lymph nodes: Normal. Vascular: Unremarkable. Musculoskeletal and soft tissues: Soft tissues are unremarkable. No aggressive bone lesions. No c ompression fracture. IMPRESSION: No evidence of pulmonary embolus or other acute chest process. ABDOMEN AND PELVIS IMPRESSION: No acute intra-abdominal abnormality. Electronically signed by: Luis Felder MD 04/03/2022 6:49 AM CDT Due to temporary technical issues with the PACS/Fluency reporting system, reports are being signed by the in house radiologists without review as a courtesy to insure prompt reporting. The interpreting radiologist is fully responsible for the content of the report.
--- NOTE | 2022-04-03 20:33 | RAD REPORT ---
EXAM DESCRIPTION: CT - Chest For Pe Angio - 04/03/2022 6:08 am COMPARISON: None. CLINICAL HISTORY: Chest and abdominal pain TECHNIQUE: CT images through the chest with IV contrast using the pulmonary embolus protocol and thr ough the abdomen and pelvis. Multiplanar reformats. MIPS reformats are provided. Automated exposure control was utilized on this examination as a dose lowering technique. FINDINGS: Pulmonary arteries and vascular: Diagnostic quality bolus. No filling defects. Heart and mediastinum: Heart size is normal. No lymphadenopathy. Thyroid gland: Visualized portions are normal. Lungs: Clear. Airways: No filling defects. No bronchiectasis. Pleura: No pneumothorax. No significant pleural effusion. Musculoskeletal and soft tissues: Within normal limits for age. CT ABDOMEN & PELVIS FINDINGS: Liver: Normal. Gallbladder and biliary: Normal gallbladder. Unremarkable biliary tree. Pancreas: Normal. Spleen: Normal. Kidneys and adrenal glands: Normal adrenal glands. Normal kidneys Stomach and Small Bowel: The stomach and small bowel are normal. Urinary bladder: Normal. Uterus and Adnexa: IUD in place. Colon and Appendix: The colon is unremarkable. No evidence of appendicitis. Peritoneal cavity: No ascites or free air. Retroperitoneum and lymph nodes: Normal. Vascular: Unremarkable. Musculoskeletal and soft tissues: Soft tissues are unremarkable. No aggressive bone lesions. No c ompression fracture. IMPRESSION: CHEST IMPRESSION: No evidence of pulmonary embolus or other acute chest process. ABDOMEN AND PELVIS IMPRESSION: No acute intra-abdominal abnormality. Electronically signed by: Luis Felder MD 04/03/2022 6:49 AM CDT Due to temporary technical issues with the PACS/Fluency reporting system, reports are being signed by the in house radiologists without review as a courtesy to insure prompt reporting. The interpreting radiologist is fully responsible for the content of the report.
--- NOTE | 2022-04-03 21:21 | RAD REPORT ---
EXAM DESCRIPTION: RAD - Chest Single View - 04/03/2022 4:58 am CLINICAL HISTORY: 36 years Female, COUGH COMPARISON: None. TECHNIQUE: Single portable x-ray view of the chest performed on 04/03/2022 at 4:53 AM FINDINGS: The lungs are relatively well expanded. There is very mild nonspecific perihilar interstit ial prominence which may be chronic in nature. No focal airspace consolidation is identified. The lat eral costophrenic sulci are clear. There is no evidence of a pneumothorax. The cardiac silhouette is normal in size and configuration. The mediastinal contours are normal. No acute osseous abnormality is identified. No acute soft tissue abnormalities are seen. Lines and tubes: None. Free air: None IMPRESSION: Mild nonspecific perihilar interstitial prominence which may be chronic in nature. Mild interstitial edema could have a similar appearance. Electronically signed by: Tammie Batista DO 04/03/2022 6:06 AM CDT Due to temporary technical issues with the PACS/Fluency reporting system, reports are being signed by the in house radiologists without review as a courtesy to insure prompt reporting. The interpreting radiologist is fully responsible for the content of the report.
--- NOTE | 2022-04-03 21:55 | RAD REPORT ---
EXAM DESCRIPTION: US - Abdomen Exam Limited - 04/03/2022 4:54 am CLINICAL HISTORY: 36 years Female ABD PAIN TECHNIQUE: Limited sonographic imaging of the right upper quadrant was performed on 04/03/2022 at 4: 37 AM to evaluate the gallbladder. COMPARISON: None. FINDINGS: The gallbladder is well distended. There is a shadowing intraluminal echo consistent with a gallstone. The gallbladder wall measures approximately 1.4 mm in diameter. There is no evidence of pericholecystic fluid. The common bile duct measures approximately 5.3 mm in diameter. A sonographic Howard's sign was not evaluated. IMPRESSION: Cholelithiasis without evidence of gallbladder wall thickening, pericholecystic fluid or biliary ductal dilatation. Electronically signed by: Tammie Batista DO 04/03/2022 6:01 AM CDT Due to temporary technical issues with the PACS/Fluency reporting system, reports are being signed by the in house radiologists without review as a courtesy to insure prompt reporting. The interpreting radiologist is fully responsible for the content of the report.
--- NOTE | 2022-04-04 15:57 | EKG ---
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
[2022-04-04 21:28] VITALS: BP 114/76; TEMP 98.4; O2SAT 99
== END 2022-04-03 11:57 | disposition short-term general hospital (02) ==
LOC: ER 03:22
DX: K80.01 Calculus of gallbladder with acute cholecystitis with obstruction (principal); E66.01 Morbid (severe) obesity due to excess calories; Z68.43 Body mass index [BMI] 50.0-59.9, adult; Z20.822 Contact with and (suspected) exposure to COVID-19
CPT/HCPCS: 36415; 71045; 71275; 74177; 76705; 80048; 80076; 81003; 81015; 83690; 83735; 83880; 84484; 85025; 85610; 87086; 87088; 87811; 93005; 96365; 96375; 99285; J2405; J2543; J3010; Q9967

== ENCOUNTER 2023-10-25 16:19 | Emergency (ER) | payer OTHER ==
[2023-10-25] MEDS ORDERED: KETOROLAC 30 MG/ML INJ ONE (16:50)
[2023-10-25] MEDS ORDERED: ONDANSETRON 4 MG (ODT) TAB ONE (16:50)
[2023-10-25] MEDS ORDERED: ACETAMINOPHEN 500 MG TAB ONE (16:50)
--- NOTE | 2023-10-25 17:18 | RAD REPORT ---
EXAM DESCRIPTION: RAD - Chest Single View - 10/25/2023 5:09 pm CLINICAL HISTORY: COUGH Chest pain. COMPARISON: <Comparisons> FINDINGS: Portable technique limits examination quality. Interstitial markings are mildly prominent which may be seen in viral infection. No consolidation see n to indicate pneumonia. The heart is normal in size. No displaced fractures.
[2023-10-25 17:25] LABS: SARS-CoV-2 Antigen CONTROL BLUE LINE VIS/BG OK; SARS-CoV-2 Antigen Rapid Res Negative (Negative)
--- NOTE | 2023-10-25 17:34 | ER ---
Nurse's Notes [facility] Name: Pat Vargas Age: 37 yrs Sex: Female : 1985 Arrival Date: 10/25/2023 Time: 16:19 Bed DX4 Private MD: Diagnosis: Viral infection, unspecified Presentation: 10/24 16:45 Chief complaint: Patient states: body aches, fever, cough x2 days. Coronavirus screen: as6 At this time, the client does not indicate any symptoms associated with coronavirus-19. Ebola Screen: No symptoms or risks identified at this time. Initial Sepsis Screen: Does the patient meet any 2 criteria? No. Patient's initial sepsis screen is negative. Does the patient have a suspected source of infection? No. Patient's initial sepsis screen is negative. Risk Assessment: Do you want to hurt yourself or someone else? Patient reports no desire to harm self or others. Onset of symptoms was October 23, 2023. 16:45 Acuity: VAL 4 as6 16:45 Method Of Arrival: Ambulatory as6 Triage Assessment: 16:48 General: Appears ill, Behavior is calm, cooperative. General: Reports fever for feeling as6 ill for fatigue for. Pain: Complains of pain in generalized. 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 - Infectious Disease History:: Denies. - Social history:: Smoking status: Patient denies any tobacco usage or history of. Screenin:38 [facility] ED Fall Risk Assessment (Adult) History of falling in the last 3 months, as6 including since admission No falls in past 3 months (0 pts) Confusion or Disorientation No (0 pts) Intoxicated or Sedated No (0 pts) Impaired Gait No (0 pts) Mobility Assist Device Used No (0 pt) Altered Elimination No (0 pt) Score/Fall Risk Level 0 - 2 = Low Risk Oriented to surroundings, Maintained a safe environment, Educated pt \T\ family on fall prevention, incl call for assistance when getting out of bed, Assessed \T\ reinforced patient's understanding of fall precautions. Abuse screen: Denies threats or abuse. Denies injuries from another. Nutritional screening: No deficits noted. Tuberculosis screening: No symptoms or risk factors identified. Vital Signs: 16:45 BP 118 / 68; Pulse 97; Resp 16 S; Temp 100.3(O); Pulse Ox 100% on R/A; Weight 129.27 kg as6 (R); Height 5 ft. 3 in. (R); Pain 10/10; 17:40 Temp 98.7(O); as6 16:45 Body Mass Index 50.48 (129.27 kg, 160.02 cm) as6 16:45 Pain Scale: Adult as6 ED Course: 16:21 Patient arrived in ED. mr 16:24 Jr Howard MD is Attending Physician. ec2 16:47 Triage completed. as6 16:47 Arm band placed on. as6 16:57 Influenza Screen (a \T\ B) Sent. as6 16:57 SARS RAPID Sent. as6 17:11 CXR XRAY In Process Unspecified. EDMS 17:38 Patient has correct armband on for positive identification. Provided Education on: as6 follow up. 17:39 No provider procedures requiring assistance completed. Patient did not have IV access as6 during this emergency room visit. Administered Medications: 16:56 Drug: Acetaminophen PO 1000 mg PO once Route: PO; as6 17:39 Follow up: Response: No adverse reaction as6 16:57 Drug: Ketorolac IM 30 mg IM once Route: IM; Site: right deltoid; as6 17:39 Follow up: Response: No adverse reaction as6 16:57 Drug: Ondansetron Oral Disintegrating Tablet Oral Disintegrating Tablet 4 mg PO once as6 Route: PO; 17:39 Follow up: Response: No adverse reaction as6 Medication: 17:38 VIS not applicable for this client. as6 Outcome: 17:33 Discharge ordered by . ec2 17:38 Discharged to home ambulatory, with significant other, as6 17:38 Condition: stable 17:39 Discharge instructions given to patient, Instructed on discharge instructions, follow as6 up and referral plans. medication usage, Demonstrated understanding of instructions, follow-up care, medications, Prescriptions given X 2, 17:41 Patient left the ED. as6 Signatures: Dispatcher [employer] EDCT Ana Flores Reg Reg mr RexRony, RN RN as6 Jr Howard MD MD ec2 Corrections: (The following items were deleted from the chart) 16:47 16:47 PSHx: None; as6 as6
--- NOTE | 2023-10-25 17:34 | EDPHYS ---
Physician Documentation [facility] Name: Pat Vargas Age: 37 yrs Sex: Female : 1985 Arrival Date: 10/25/2023 Time: 16:19 Bed DX4 Private MD: ED Physician Jr Howard HPI: 10/24 16:41 This 37 yrs old Female presents to ER via Unassigned with complaints of Flu ec2 Symptoms. 16:41 Patient arrives today for evaluation of 1 day of URI signs symptoms. Patient reports ec2 having cough and congestion as well as body aches. Patient reports fevers and chills along with decreased p.o. intake, some associated nausea. Patient reports no vomiting or diarrhea. Patient reports no urinary complaints, no sick contacts. . 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 - Infectious Disease History:: Denies. - Social history:: Smoking status: Patient denies any tobacco usage or history of. ROS: 16:41 Constitutional: as per hpi ec2 Exam: 16:41 Constitutional: GEN: NAD Head: atraumatic Eyes: EOMI Ears: External ears are ec2 normal. CV: regular rate LUNGS: no respiratory distress, no wheezes, no rales, rhonchi ABD: non-distended SKIN: no evidence of rashes MSK: no evidence of trauma NEURO: moves all extremities equally Vital Signs: 16:45 BP 118 / 68; Pulse 97; Resp 16 S; Temp 100.3(O); Pulse Ox 100% on R/A; Weight 129.27 kg as6 (R); Height 5 ft. 3 in. (R); Pain 10/10; 17:40 Temp 98.7(O); as6 16:45 Body Mass Index 50.48 (129.27 kg, 160.02 cm) as6 16:45 Pain Scale: Adult as6 MDM: 16:41 Data reviewed: vital signs. ED course: Patient arrives today for evaluation of URI ec2 signs and symptoms. Examination markable for well-appearing nontoxic dividual's otherwise in no acute distress but will obtain chest x-ray, viral swabs. Suspect viral infection causing symptoms, doubt pneumonia. . 16:48 Patient medically screened. ec2 17:22 ED course: Chest x-ray with no focal opacity noted.. ec2 17:33 ED course: Negative flu and COVID testing. Suspect other viral infection causing his ec2 symptoms. Will discharge home. Return precautions given.. 10/24 16:40 Order name: Influenza Screen (a \T\ B); Complete Time: 17:33 ec2 10/24 16:40 Order name: SARS RAPID; Complete Time: 17:27 ec2 10/24 16:40 Order name: CXR XRAY; Complete Time: 17:22 ec2 Administered Medications: 16:56 Drug: Acetaminophen PO 1000 mg PO once Route: PO; as6 17:39 Follow up: Response: No adverse reaction as6 16:57 Drug: Ketorolac IM 30 mg IM once Route: IM; Site: right deltoid; as6 17:39 Follow up: Response: No adverse reaction as6 16:57 Drug: Ondansetron Oral Disintegrating Tablet Oral Disintegrating Tablet 4 mg PO once as6 Route: PO; 17:39 Follow up: Response: No adverse reaction as6 Disposition Summary: 10/25/23 17:33 Discharge Ordered Notes: Location: Home ec2 Condition: Stable ec2 Diagnosis - Viral infection, unspecified ec2 Followup: ec2 - With: Private Physician - When: - Reason: Re-evaluation by your physician Discharge Instructions: - Discharge Summary Sheet ec2 - Viral Illness, Adult ec2 Forms: - Work release form ll1 - Medication Reconciliation Form ec2 - Thank You Letter ec2 - Antibiotic Education ec2 - Prescription Opioid Use ec2 - Patient Portal Instructions ec2 - Leadership Thank You Letter ec2 Prescriptions: - Zofran 4 mg Oral Tablet - take 1 tablet ORAL route every 12 hours As needed; 20 tablet; Refills: 0, ec2 Product Selection Permitted - Tessalon Perles 100 mg Oral Capsule - take 1 capsule ORAL route every 8 hours As needed; 15 capsule; Refills: 0, ec2 Product Selection Permitted Signatures: Dispatcher [employer] Rony Irizarry RN RN as6 Jr Howard MD MD ec2 Corrections: (The following items were deleted from the chart) 16: 16:41 Influenza Screen (A \T\ B)+BA.LAB.BRZ ordered. EDMS EDMS 1641 16:41 SARS-COV-2 Antigen Rapid+I.LAB.KERRY ordered. EDMS EDMS 16:47 16:47 PSHx: None; as6 as6
[2023-10-25 17:49] VITALS: BP 118/68; TEMP 98.7; O2SAT 100
== END 2023-10-25 17:41 | disposition home or self-care (01) ==
LOC: ER 16:19
DX: B34.9 Viral infection, unspecified (principal); Z11.52 Encounter for screening for COVID-19; Z91.018 Allergy to other foods
CPT/HCPCS: 36415; 87804 ×2; 71045; 96372; 99284; 87811; Q0162

== ENCOUNTER 2024-10-03 20:00 | Emergency (ER) | payer OTHER, SELFPAY ==
[2024-10-03 20:42] LABS: Influenza A Ag Negative; Influenza B Ag Negative; SARS-CoV-2 Antigen Rapid Res Negative (Negative)
--- NOTE | 2024-10-03 21:15 | RAD REPORT ---
EXAM: Chest Pa And Lat (2 Views) HISTORY: 38 years Female Congestion;Cough COMPARISON: 10/25/2023 FINDINGS: LUNGS/PLEURA: Low lung volumes with some interstitial prominence. No focal consolidation or edema. CARDIAC/MEDIASTINUM: The cardiac silhouette is within normal limits. UPPER ABDOMEN: No significant abnormality. BONES: No acute abnormality. LINES/TUBES/OTHER: N/A IMPRESSION: Prominence of the interstitium could reflect a nonspecific process such as bronchitis. No edema or co nsolidative airspace disease.
--- NOTE | 2024-10-03 21:19 | ER ---
Nurse's Notes [facility] Name: Pat Vargas Age: 38 yrs Sex: Female : 1985 Arrival Date: 10/03/2024 Time: 20:00 Bed IW1 Private MD: Diagnosis: Presentation: 10/03 20:09 Chief complaint: Patient states: Cough, fever, body aches, shortness of breath and cm10 blood tinged phlegm onset tuesday. Coronavirus screen: Client denies travel out of the [place] in the last 14 days. Ebola Screen: Patient denies travel to an Ebola-affected area in the 21 days before illness onset. Initial Sepsis Screen: Does the patient meet any 2 criteria? HR > 90 bpm. Does the patient have a suspected source of infection? No. Patient's initial sepsis screen is negative. Risk Assessment: Do you want to hurt yourself or someone else? Patient reports no desire to harm self or others. Onset of symptoms was October 03, 2024. 20:09 Method Of Arrival: Ambulatory cm10 20:09 Acuity: VAL 3 cm10 Triage Assessment: 20:11 General: Appears in no apparent distress. uncomfortable, Behavior is calm, cooperative. cm10 Neuro: No deficits noted. Level of Consciousness is awake, alert, obeys commands, Oriented to person, place, time, situation, Appropriate for age. Respiratory: No deficits noted. Reports shortness of breath cough that is productive, Airway is patent Respiratory effort is even, unlabored, Respiratory pattern is regular, symmetrical. Historical: - Allergies: 20:11 Coconut; cm10 20:11 mushroom; cm10 - Home Meds: 20:11 None [Active]; cm10 - PMHx: 20:11 None; cm10 - PSHx: 20:11 Cholecystectomy; cm10 - Immunization history:: Adult Immunizations up to date. - Infectious Disease History:: Denies. - Social history:: Smoking status: Patient denies any tobacco usage or history of. Assessment: 21:16 General: PT SEEN LEAVING ER AT THIS TIME.. cm10 Vital Signs: 20:09 BP 143 / 91; Pulse 93; Resp 18; Temp 98.7(O); Pulse Ox 99% on R/A; Weight 144.24 kg; cm10 Height 5 ft. 3 in. ; Pain 03/27; 20:09 Body Mass Index 56.33 (144.24 kg, 160.02 cm) cm10 20:09 Pain Scale: Adult cm10 ED Course: 20:02 Patient arrived in ED. im 20:05 Sara Delong PA-C is PHCP. sb4 20:05 Raymond Almonte MD is Attending Physician. sb4 20:10 Triage completed. cm10 20:11 Arm band placed on right wrist. Patient placed in waiting room. cm10 20:41 Chest Pa And Lat (2 Views) XRAY In Process Unspecified. EDMS Administered Medications: No medications were administered Outcome: 21:19 Patient left the ED. cm10 Signatures: Dispatcher [employer] EDMS Sara Delong PA-C PA-C sb4 Adelita Zuniga Clarissa, RN RN cm10
[2024-10-04 01:39] VITALS: BP 143/91; TEMP 98.7; O2SAT 99
--- NOTE | 2024-10-04 21:19 | EDPHYS ---
Physician Documentation [facility] Name: Pat Vargas Age: 38 yrs Sex: Female : 1985 Arrival Date: 10/03/2024 Time: 20:00 Bed IW1 Private MD: ED Physician Raymond Almonte Historical: - Allergies: 10/03 20:11 Coconut; cm10 20:11 mushroom; cm10 - Home Meds: 20:11 None [Active]; cm10 - PMHx: 20:11 None; cm10 - PSHx: 20:11 Cholecystectomy; cm10 - Immunization history:: Adult Immunizations up to date. - Infectious Disease History:: Denies. - Social history:: Smoking status: Patient denies any tobacco usage or history of. Vital Signs: 20:09 BP 143 / 91; Pulse 93; Resp 18; Temp 98.7(O); Pulse Ox 99% on R/A; Weight 144.24 kg; cm10 Height 5 ft. 3 in. ; Pain 9/10; 20:09 Body Mass Index 56.33 (144.24 kg, 160.02 cm) cm10 20:09 Pain Scale: Adult cm10 MDM: 20:07 Medical Screening Exam initiated sb4 21:22 ED course: patient eloped prior to being seen by me. sb4 10/03 20:11 Order name: COVID-19 Ag + Flu A+B Ag; Complete Time: 20:42 cm10 10/03 20:28 Order name: Chest Pa And Lat (2 Views) XRAY; Complete Time: 21:15 sb4 Administered Medications: No medications were administered Disposition: 21:22 Chart complete. sb4 Disposition Summary: 10/03/24 21:19 Eloped Notes: Disposition: before being seen by provider cm10 Reason: unknown cm10 Addendum: 10/04/2024 21:30 Co-signature as Attending Physician, Raymond Almonte MD I agree with the assessment s p4 and plan of care. I reviewed the patient's care provided by the Advanced Practice Provider and agree with the diagnosis and treatment plan. Signatures: Dispatcher [employer] EDMS Sara Delong, JUVENTINOC PAKaitlynnC sb4 Raymond Almonte MD MD sp4 Leonard, Angie, RN RN cm10
== END 2024-10-03 21:19 | disposition left against medical advice (07) ==
LOC: ER 20:00
DX: Z53.21 Procedure and treatment not carried out due to patient leaving prior to being seen by health care provider (principal)
CPT/HCPCS: 36415; 71046; 87428